=== PATIENT | female | born 1980 | race Caucasian/White ===

== ENCOUNTER 2022-12-16 10:09 | Day surgery (SDC) | payer OTHER ==
[2022-12-13 11:20] VITALS: BMI 38.2
[2022-12-16] MEDS ORDERED: fentaNYL PF 100 MCG/2 ML SYRINGE ONE (11:58)
[2022-12-16] MEDS ORDERED: Ondansetron PF 4 MG/2 ML Vial ONE (12:15)
[2022-12-16] MEDS ORDERED: PROPOFOL 200 MG/20 ML VIAL ONE (12:15)
[2022-12-16] MEDS ORDERED: Midazolam HCl 2 mg/2 ml Vial ONE (12:23)
== END 2022-12-16 14:25 | disposition home or self-care (01) ==
LOC: MRI 10:09
PROVIDERS: ATTEND Nurse Practitioner Family
DX: G93.5 Compression of brain (principal); E66.9 Obesity, unspecified; Z68.38 Body mass index [BMI] 38.0-38.9, adult; Z88.8 Allergy status to other drugs, medicaments and biological substances
CPT/HCPCS: 70551; J2250; J2405; J2704